=== PATIENT | male | born 1990 | race Two or more races ===

== ENCOUNTER → 2019-12-29 12:45 | Outpatient (CLI) | payer BC, SELFPAY | PROVIDERS: PCP Family Medicine; Visit Provider Specialist | DX: G47.33 Obstructive sleep apnea (adult) (pediatric) (principal); G47.34 Idiopathic sleep related nonobstructive alveolar hypoventilation | CPT/HCPCS: 94762 ==

== ENCOUNTER → 2020-04-14 08:31 | Outpatient (CLI) | payer BC, SELFPAY ==
[2020-04-15 14:03] LABS: Covid-19 Nasal PCR Sendout Lex NOT DETECTED
== END ==
PROVIDERS: PCP Family Medicine; Visit Provider Family Medicine
DX: Z03.818 Encounter for observation for suspected exposure to other biological agents ruled out (principal)
CPT/HCPCS: U0004

== ENCOUNTER → 2020-11-14 15:30 | Outpatient (CLI) | payer BC, SELFPAY | PROVIDERS: PCP Family Medicine; Visit Provider Specialist | DX: R06.83 Snoring (principal); Z87.09 Personal history of other diseases of the respiratory system | CPT/HCPCS: G0399 ==